=== PATIENT | female | born 1990 | race African-American/Black ===

== ENCOUNTER 2020-12-02 21:29 | Emergency (ER) | payer OTHER, SELFPAY ==
--- NOTE | ~2020-12-02 | XR_ITS ---
XR ankle RT min 3V 12/02/2020 22:17 INDICATION: Right ankle pain PROCEDURE: 4 views right ankle COMPARISON: No prior studies for comparison. FINDINGS: Fracture, dislocation or subluxation is not identified. The soft tissues appear within norm al limits. No foreign bodies are identified. IMPRESSION: 1: NO ACUTE BONE OR JOINT ABNORMALITY IDENTIFIED. Reviewed, dictated and finalized at location A.
[2020-12-02 21:52] VITALS: BP 115/76; PULSE 72; RESP 16; TEMP 36.5; O2SAT 100
--- NOTE | 2020-12-02 22:42 | ED.LOWEXIN ---
HPI - Extremity Injury (Lower) General Chief Complaint: Extremity Injury, Lower Stated Complaint: rolled right ankle Time Seen by Provider: 12/02/20 22:08 Source: patient Mode of arrival: ambulatory Limitations: no limitations History of Present Illness HPI Narrative: Patient is a 30-year-old female who presents complaining of right ankle pain. Patient reports rolling ankle while at work. She denies other injuries. She denies taking pain medication prior to arrival. She denies significant medical history. Patient is ambulatory from triage without difficulty. MD complaint: ankle injury Related Data Home Medications Medication Instructions Recorded Confirmed No Home Medications 12/02/20 12/02/20 Allergies Allergy/AdvReac Type Severity Reaction Status Date / Time No Known Allergies Allergy Verified 12/02/20 21:30 Review of Systems Review of Systems: Narrative: CONSTITUTIONAL: Denies fever, chills, or sweats. EYES: Denies visual changes, redness, or discharge. ENT: Denies rhinorrhea, congestion, sore throat, or otalgia. CARDIOVASCULAR: Denies chest pain, palpitations, or edema. RESPIRATORY: Denies cough or dyspnea. GASTROINTESTINAL: Denies abdominal pain, nausea, vomiting, or diarrhea. GENITOURINARY: Denies dysuria or hematuria. SKIN: Denies rash or itching. MUSCULOSKELETAL: Right ankle pain NEUROLOGIC: Denies headache, numbness, dizziness, or weakness. PSYCHIATRIC: Denies anxiety or depression. [facility] Social History Social History (Updated 12/02/20 @ 22:44 by ANICETO Parkinson) Smoking status: Never smoker Alcohol intake: never Substance use: never Living arrangements: with family Comments At the time of signature, I have reviewed and agree with nursing past medical, surgical, social, and family history unless otherwise noted. Please see nursing chart for further information. There is no relevant family history pertinent to the presenting complaint. Exam Narrative: Exam Narrative: GENERAL: Well-appearing, well-nourished, and in no acute distress. HEAD: Normocephalic, atraumatic. EYES: EOMI. No redness or drainage. Conjunctiva are normal. ENT: Mucous membranes pink and moist. CHEST: No respiratory distress. HEART: Regular rate and rhythm. EXTREMITIES: Mild edema in the right lateral ankle, tenderness with palpation, full range of motion, distal sensation intact, good capillary refill SKIN: Warm, dry, no rash. NEURO: No focal deficits. Alert and oriented x3. Gait steady. PSYCH: Normal affect. No signs of depression or anxiety. Course Vital Signs Vital signs: Vital Signs Temperature 36.5 C 12/02/20 21:52 Pulse Rate 72 12/02/20 21:52 Respiratory Rate 16 12/02/20 21:52 Blood Pressure 115/76 12/02/20 21:52 Pulse Oximetry 100 12/02/20 21:52 Temperature 36.5 C 12/02/20 21:52 Pulse Rate 72 12/02/20 21:52 Respiratory Rate 16 12/02/20 21:52 Blood Pressure 115/76 12/02/20 21:52 Pulse Oximetry 100 12/02/20 21:52 Reviewed. Patient has been instructed to follow-up with his PCP regarding his blood pressure. MDM - Extremity Injury (Lower) MDM Narrative Medical decision making narrative: Patient's x-ray shows no osseous abnormality. Discussed with patient most likely sprain or strain of right ankle. Maik wrap placed, instructions on rest, ice and elevation. Patient to follow-up with orthopedics in 3 to 5 days if symptoms persist. Patient is stable for discharge to home with outpatient follow-up as needed. Differential Diagnosis Differential diagnosis: Likely ankle sprain and strain and ankle fracture Critical Care Time Critical Care Time Critical Care Time: No Discharge Plan Discharge Clinical Impression: Ankle sprain and strain Patient Disposition: Home, Self-Care Condition: Stable Instructions: Ankle Sprain (DC) Additional Instructions: Rest, ice, and elevate ankle. You may take Tylenol or ibuprofen for pain. Maik wrap for comfort. Fo
== END 2020-12-02 23:02 | disposition home or self-care (01) ==
PROVIDERS: Emergency Provider Nurse Practitioner; PCP Physician Assistant
DX: S93.401A Sprain of unspecified ligament of right ankle, initial encounter (principal); S96.911A Strain of unspecified muscle and tendon at ankle and foot level, right foot, initial encounter; X50.9XXA Other and unspecified overexertion or strenuous movements or postures, initial encounter
CPT/HCPCS: 73610; 99283